=== PATIENT | female | born 1990 ===

== ENCOUNTER 2022-06-30 03:54 | Emergency (ER) | payer SELFPAY ==
[2022-06-30 04:10] VITALS: BP 123/83
--- NOTE | 2022-06-30 04:27 | ED Physician Documentation ---
PD HPI ABD PAIN - Stated complaint Stated Complaint: rectal crampine - Chief complaint Chief Complaint: General - History obtained from History obtained from: Patient - Additional information Additional information: Patient is a 32-year-old female with chronic issues related to constipation presenting for evaluation of what she describes as "Rectal cramping"And lower abdominal cramping that started around 2:00 this morning. Patient states that she had gotten up to use the bathroom and urinated and when she was getting off the toilet to wash her hands she started feeling discomfort in the rectal area as well as in the lower abdomen that she reports feels like a cramp.She says that the discomfort in the rectum has subsided. She still feels a little bit of abdominal cramping. She reports Ongoing issues with having regular bowel movements and states that she usually uses laxatives and fiber but has not used any for the past week out of her own choosing. 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 She has never seen a GI doctor for her constipation issues.She denies any fever, chest pain, abdominal pain, vomiting. She denies concerns for . Denies prior abdominal surgeries. Review of Systems Constitutional: denies: Fever Cardiac: denies: Chest pain / pressure Respiratory: denies: Dyspnea GI: reports: Abdominal Pain. denies: Nausea, Vomiting, Diarrhea : denies: Dysuria Neurologic: denies: Headache PD PAST MEDICAL HISTORY - Past Medical History Past Medical History: Yes Other Past Medical History: Chronic constipation - Past Surgical History Past Surgical History: No - Present Medications Home Medications: Ambulatory Orders Medication Instructions Recorded Confirmed Magnesium Citrate 296 ml PO ONCE PRN #296 ml 06/30/22 polyethylene glycoL 3350(BULK) 17 gm PO DAILY PRN #1 each 06/30/22 [Miralax] - Allergies Allergies/Adverse Reactions: Allergies Allergy/AdvReac Type Severity Reaction Status Date / Time No Known Drug Allergies Allergy Verified 06/30/22 04:09 - Social History Does the pt smoke?: No Smoking Status: Never smoker Does the pt drink ETOH?: Yes ETOH Use: Liquor Does the pt have substance abuse?: No - Immunizations Immunizations are current?: Yes - POLST Patient has POLST: No PD ED PE NORMAL - General General: Alert and oriented X 3, No acute distress, Well developed/nourished - HEENT HEENT: Atraumatic - Neck Neck: Supple, no meningeal sign - Cardiac Cardiac: RRR, No murmur - Respiratory Respiratory: No respiratory distress, Clear bilaterally - Abdomen Abdomen: Normal bowel sounds, Soft, Non distended, Other (Mild suprapubic tenderness, No rebound, no guarding, no mass) - Rectal Rectal: Other (Chaperoned by Karis RIVERA, normal rectal tone, no visible hemorrhoids,No stool in rectal vault, no blood ) - Derm Derm: Warm and dry - Neuro Neuro: Normal speech Results - Vitals Vitals: Vital Signs - 24 hr 06/30/22 04:05 Temperature 36.9 C Heart Rate 82 Respiratory 16 Rate Blood Pressure 123/83 H O2 Saturation 98 Oxygen O2 Source Room air - Labs Labs: Laboratory Tests 06/30/22 04:32 Urine Color YELLOW Urine Clarity CLEAR Urine pH 6.0 Ur Specific [place] 1.025 Urine Protein NEGATIVE Urine Glucose (UA) NEGATIVE Urine Ketones NEGATIVE Urine Occult Blood TRACE-INTA Urine Nitrite NEGATIVE Urine Bilirubin NEGATIVE Urine Urobilinogen 2 H Ur Leukocyte Esterase NEGATIVE Ur Microscopic Review NOT INDICATED Urine Culture Comments NOT INDICATED Urine HCG, Qual NEGATIVE PD Medical Decision Making - ED course Complexity details: reviewed results, re-evaluated patient, d/w patient ED course: Patient presenting for evaluation of what she describes as cramping in the rectum and abdomen.Her vital signs appear stable. Her abdominal exam is relatively benign with no peritonitis.Rectal exam was also performed with no stool in the rectal vault.Urinalysis was obtained and reviewed with no signs of infection, blood and patient is not . On repeat abdominal exam patient reports feeling better and her symptoms have significantly improved Since onset.Patient has been off her bowel regiment for the past week. Discussed resuming this as well as adding a trial of magnesium citrate today. Discussed that she needs close follow-up with her PCM and Would likely benefit from a referral to gastroenterology. At this time I do not feel labs or abdominal imaging would be necessary as she does not have Significant tenderness on exam.Patient is counseled on strict return precautions for any new or worsening symptoms. Departure - Departure Disposition: 01 Home, Self Care Clinical Impression: Constipation Condition: Stable Instructions: ED Constipation Prescriptions: Magnesium Citrate 296 ml PO ONCE PRN #296 ml PRN Reason: Constipation polyethylene glycoL 3350(BULK) [Miralax] 17 gm PO DAILY PRN #1 each PRN Reason: Constipation Comments: I have sent 2 medications to the [facility] in [place] to help you with constipation.I would recommend close follow-up with your primary care. I believe you would also benefit from a referral to gastroenterology (GI) For further evaluation of your chronic constipation. Please continue to stay hydrated. If it anytime you develop any worsening symptoms or have any new concerns please consider return to the emergency department. Forms: Activity restrictions
[2022-06-30 04:45] LABS: BILIRUBIN,URINE NEGATIVE (NEGATIVE); CLARITY,URINE CLEAR (CLEAR); GLUCOSE, URINE (UA) NEGATIVE (NEGATIVE); KETONES,URINE (UA) NEGATIVE (NEGATIVE); LEUKOCYTE ESTERASE, URINE NEGATIVE (NEGATIVE); NITRITE,URINE NEGATIVE (NEGATIVE); OCCULT BLOOD,URINE TRACE-INTA (NEGATIVE); PROTEIN,URINE NEGATIVE (NEGATIVE); UROBILINOGEN,URINE 2 E.U./dL (NORMAL)
[2022-06-30 04:47] LABS: HCG UR QUAL NEGATIVE
== END 2022-06-30 05:12 | disposition home or self-care (01) ==
LOC: ED 03:54
DX: K59.00 Constipation, unspecified (principal)
CPT/HCPCS: 81001; 81003; 81025; 87086; 99283